=== PATIENT | male | born 1995 | race Caucasian/White ===

== ENCOUNTER 2016-05-28 14:18 | Emergency (ER) | payer OTHER ==
[~2016-05-28 14:18] MED LIST: ALBU8.5H3; FLOV110; LEVO100T87 PO; OXCA150T3 PO; ZONI50CA15 PO
== END 2016-05-28 15:27 | disposition left against medical advice (07) ==
LOC: E/R 14:18
DX: Z53.21 Procedure and treatment not carried out due to patient leaving prior to being seen by health care provider (principal)

== ENCOUNTER 2017-02-22 03:04 | Emergency (ER) | payer OTHER ==
[~2017-02-22] VITALS: Ht 152.4 cm; Wt 89.3 kg
[2017-02-22 03:14] VITALS: Ht 152.4 cm; Wt 89.3 kg
[2017-02-22] MEDS ORDERED: ALBUTEROL 0.5% (NEB) 2.5 MG/0.5 ML AMP INH STA (03:18)
[2017-02-22] MEDS ORDERED: DEXAMETHASONE 10 MG/ML 1 ML INJ IV STA (03:18)
[2017-02-22] MEDS ORDERED: IPRATROPIUM (NEB) 0.5 MG/2.5 ML AMP INH STA (03:18)
--- NOTE | 2017-02-22 03:42 | RADRPT ---
PROCEDURE: XR Chest. CLINICAL INDICATION: Dyspnea. TECHNIQUE: Single frontal view of the chest. COMPARISON: None. FINDINGS: The cardiomediastinal silhouette is within normal limits. The lungs are clear. No signs of pleural f luid or pneumothorax are seen. The osseous structures and soft tissues are unremarkable. IMPRESSION: No evidence for active cardiopulmonary disease. RPTAT: [facility] Physician Mira Date Time Electronically viewed and signed by Physician Mira on 02/22/2017 03:42 RS/
[2017-02-22 04:09] LABS: BASOPHIL # 0.1 10^3/ul (0.0-0.1); BASOPHILS % 0.6 % (0.0-2.0); EOSINOPHILS # 0.2 10^3/ul (0.0-0.5); EOSINOPHILS % 1.4 % (0.0-7.0); HEMOGLOBIN 16.1 g/dl (14.0-18.0); LYMPHOCYTES # 1.3 10^3/ul (0.8-2.9); LYMPHOCYTES % 10.3 % (18.0-55.0); MEAN CORPUSCULAR HEMOGLOBIN 29.5 pg (29.0-33.0); MEAN CORPUSCULAR HGB CONC 33.5 g/dl (32.0-37.0); MEAN CORPUSCULAR VOLUME 87.9 fl (72.0-104.0); MEAN PLATELET VOLUME 9.3 fl (7.4-10.4); MONOCYTE # 0.4 10^3/ul (0.3-0.9); MONOCYTES % 3.2 % (0.0-13.0); NEUTROPHIL # 10.5 10^3/ul (1.6-7.5); NEUTROPHILS % 83.7 % (30.0-74.0); PLATELET COUNT 255 10^3/UL (140-415); RED BLOOD COUNT 5.46 10^6/ul (4.70-6.10); RED CELL DISTRIBUTION WIDTH 12.8 % (11.5-14.5); WHITE BLOOD COUNT 12.6 10^3/ul (4.8-10.8)
[2017-02-22 04:33] LABS: PARTIAL THROMBOPLASTIN TIME 28.8 Sec (25.0-35.0); PROTIME 13.3 Sec (11.9-14.9)
[2017-02-22 04:36] LABS: ANION GAP 18 (8-16)
[2017-02-22 04:39] LABS: BLOOD UREA NITROGEN 10 mg/dl (7-20); CALCIUM 9.3 mg/dl (8.4-10.2); CARBON DIOXIDE 23 mmol/L (21-31); CHLORIDE 105 mmol/L (97-110); CREATININE 0.92 mg/dl (0.61-1.24); GLUCOSE 151 mg/dl (70-220); POTASSIUM 4.4 mmol/L (3.5-5.1); SODIUM 142 mmol/L (135-144)
[2017-02-22 04:51] LABS: TROPONIN-I < 0.012 ng/ml (0.00-0.12)
[2017-02-22 05:00] VITALS: BP 137/99; PULSE 132; RESP 20
--- NOTE | 2017-02-22 05:29 | ERD ---
ER Documentation Chief Complaint Chief Complaint sob X 1 HOUR, HOME NEBSD NOT HELPING, RETRACTING AND WHEEZING HPI This is a very pleasant 21-year-old male who presents with for the past hour. Patient has history of asthma. He developed nebulizer with no relief. History of autism. No nausea no vomiting no chills. No fever. No other current issues ROS All systems reviewed and are negative except as per history of present illness. Medications Home Meds Reported Medications Fluticasone Propionate* (Flovent* HFA 110) 12 Gm Inha 02/04/11 Albuterol Sulfate* (Proair HFA*) 8.5 Gm Hfa.aer.ad 02/04/11 Levothyroxine Sodium* (Levothyroxine Sodium*) 100 Mcg Tablet, PO DAILY 02/04/11 Zonisamide* (Zonegran*) 50 Mg Capsule, 150 MG PO BID 02/04/11 Oxcarbazepine* (Trileptal*) 150 Mg Tablet, PO BID 02/04/11 Allergies Allergies: Coded Allergies: No Known Allergy (Verified , 02/04/11) PMhx/Soc History of Surgery: Yes (2 BRAIN VNS) Hx Neurological Disorder: Yes (SEIZURES) Hx Respiratory Disorders: Yes (ASTHMA) Hx Alcohol Use: No Hx Substance Use: No Hx Tobacco Use: No Smoking Status: Never smoker Physical Exam Vitals Vital Signs Date Time Temp Pulse Resp B/P Pulse Ox O2 Delivery O2 Flow Rate FiO2 02/22/17 05:00 132 20 137/99 96 Room Air Mask 02/22/17 04:00 145 30 143/106 100 Mask 8.0 02/22/17 03:28 154 24 94 21 02/22/17 03:17 Nasal Cannula 2 02/22/17 03:17 Nasal Cannula 2.0 02/22/17 03:14 97.9 155 32 122/105 100 Physical Exam Const: [] Head: Atraumatic Eyes: Normal Conjunctiva ENT: Normal External Ears, Nose and Mouth. Neck: Full range of motion..~ No meningismus. Resp: Clear to auscultation bilaterally Cardio: Regular rate and rhythm, no murmurs Abd: Soft, non tender, non distended. Normal bowel sounds Skin: No petechiae or rashes Back: No midline or flank tenderness Ext: No cyanosis, or edema Neur: Awake and alert Psych: Normal Mood and Affect Result Diagram: 02/22/17 0340 02/22/17 0340 Results 24 hrs Laboratory Tests Test 02/22/17 03:40 White Blood Count 12.610^3/ul Red Blood Count 5.4610^6/ul Hemoglobin 16.1g/dl Hematocrit 48.0% Mean Corpuscular Volume 87.9fl Mean Corpuscular Hemoglobin 29.5pg Mean Corpuscular Hemoglobin Concent 33.5g/dl Red Cell Distribution Width 12.8% Platelet Count 41090^3/UL Mean Platelet Volume 9.3fl Neutrophils % 83.7% Lymphocytes % 10.3% Monocytes % 3.2% Eosinophils % 1.4% Basophils % 0.6% Nucleated Red Blood Cells % 0.0/100WBC Neutrophils # 10.510^3/ul Lymphocytes # 1.310^3/ul Monocytes # 0.410^3/ul Eosinophils # 0.210^3/ul Basophils # 0.110^3/ul Nucleated Red Blood Cells # 0.010^3/ul Prothrombin Time 13.3Sec Prothrombin Time Ratio 1.0 INR International Normalized Ratio 1.00 Activated Partial Thromboplast Time 28.8Sec Sodium Level 142mmol/L Potassium Level 4.4mmol/L Chloride Level 105mmol/L Carbon Dioxide Level 23mmol/L Anion Gap 18 Blood Urea Nitrogen 10mg/dl Creatinine 0.92mg/dl Glucose Level 151mg/dl Calcium Level 9.3mg/dl Troponin I < 0.012ng/ml Current Medications Medications (Trade) Dose Ordered Sig/John Route PRN Reason Start Time Stop Time Status Last Admin Dose Admin Albuterol (Proventil 0.5% (Neb)) 10 mg ONCE STAT INH 02/22/17 03:18 02/22/17 03:19 DC 02/22/17 03:28 Ipratropium [place] (Atrovent 0.02% (Neb)) 1 mg ONCE STAT INH 02/22/17 03:18 02/22/17 03:19 DC 02/22/17 03:27 Dexamethasone (Decadron) 10 mg ONCE STAT IV 02/22/17 03:18 02/22/17 03:19 DC 02/22/17 03:30 Procedures/MDM Patient's respiratory status has stabilized while in the department and is appropriate for outpatient work up. Exam and work up not consistent w/ impending respiratory failure or cardiovascular collapse. Chest X-ray 1V Interpreted by me: Soft Tissue: No acute abnormalities Bones: No acute abnormalities Mediastinum/Cardiac Silhouette/Lungs: [No acute abnormalities] Departure Diagnosis: Primary Impression: Asthma with acute exacerbation Asthma severity: moderate Asthma persistence: unspecified Qualified Code: J45.901 - Moderate asthma with acute exacerbation, unspecified whether persistent Condition: Stable ANIVAL WOLFF Feb 22, 2017 05:29
[2017-02-22] MEDS ORDERED: ALBU18HF INHALATION (05:31)
[2017-02-22] MEDS ORDERED: PRED20TA PO (05:31)
== END 2017-02-22 05:44 | disposition home or self-care (01) ==
LOC: E/R 03:04
DX: J45.901 Unspecified asthma with (acute) exacerbation (principal)
CPT/HCPCS: 36415; 71010; 80048; 84484; 85025; 85610; 85730; 93005; 94644; 96374; J1100; Z7502; Z7610